=== PATIENT | female | born 1960 | race Caucasian/White ===

== ENCOUNTER 2020-05-18 19:29 | Inpatient (IN) | payer BC, SELFPAY ==
[~2020-05-18] VITALS: Ht 165.1 cm; Wt 64.0 kg
[2020-05-18 19:49] VITALS: BP_SYST 125
--- NOTE | 2020-05-18 19:55 | NUR ---
Patient to ER bed 06 to gown for evaluation. Side rails up. Report given to JOE Mauro
--- NOTE | 2020-05-18 20:11 | NUR ---
DR ANGULO IN TO ASSESS
[2020-05-18] MEDS ORDERED: MORPHINE 4 MG/ML INJ. SYRINGE IVP ONE (20:15)
[2020-05-18] MEDS ORDERED: NACL 0.9% 1,000 ML IV ONE (20:15)
--- NOTE | 2020-05-18 20:15 | NUR ---
HERE FOR C/O FEVERS, RECEIVING TX FOR CA AND WAS TOLD TO GO TO ER FOR FEVERS UPON ARRIVAL AMBULATORY, RESP UNLABORED, SKIN WARM AND DRY. NO DISTRESS
[2020-05-18] MEDS ORDERED: MORPHINE 4 MG/ML INJ. SYRINGE ONE (20:47)
[2020-05-18] MEDS: ONDANSETRON HCL 4 MG/2 ML VIAL IVP ONE ×2 (20:54→21:01)
[2020-05-18 21:09] LABS: BASOPHILS % (AUTO) 0.2 % (0.0-2.0); EOSINOPHILS # (AUTO) 0.1 K/uL (0.0-0.4); EOSINOPHILS % (AUTO) 0.7 % (0.0-4.0); HEMATOCRIT 27.8 % (36-48); HEMOGLOBIN 9.1 g/dL (12.0-16.0); LYMPHOCYTES # (AUTO) 0.6 K/uL (1.0-5.5); LYMPHOCYTES % (AUTO) 5.3 % (20.5-51.5); MEAN CORPUSCULAR HEMOGLOBIN 29 pg (27-31); MEAN CORPUSCULAR HGB CONC 33 % (32-36); MEAN CORPUSCULAR VOLUME 89 fL (79.0-98.0); MONOCYTES # (AUTO) 0.6 K/uL (0.0-1.0); MONOCYTES % (AUTO) 5.3 % (1.7-9.3); NEUTROPHILS # (AUTO) 10.6 K/uL (1.8-7.7); NEUTROPHILS % (AUTO) 88.5 % (40.0-70.0); PLATELET COUNT (AUTO) 338 K/uL (130-430); RED BLOOD CELL COUNT(AUTO) 3.12 MIL/uL (4.2-6.2); RED CELL DISTRIBUTION WIDTH 17.8 % (9.0-15.0)
[2020-05-18 21:21] LABS: INFLUENZA A&B ANTIGEN SCREEN NEGATIVE FOR A & B (NEGATIVE)
[2020-05-18 21:26] LABS: CALCIUM 9.4 mg/dL (8.4-11.0); CREATININE 0.91 mg/dL (0.55-1.30)
[2020-05-18 21:31] LABS: ALBUMIN 2.6 g/dL (3.4-4.8); TOTAL BILIRUBIN 0.6 mg/dL (0.0-1.0)
[2020-05-18 21:44] LABS: BILIRUBIN,URINE NEGATIVE (NEGATIVE); BLOOD, URINE 1+ (NEGATIVE); CLARITY/URINE CLEAR (CLEAR); COLOR,URINE YELLOW (YELLOW); GLUCOSE,URINE NEGATIVE (NEGATIVE); KETONES,URINE NEGATIVE (NEGATIVE); LEUKOCYTE ESTERASE ,URINE 1+ (NEGATIVE); NITRITE, URINE NEGATIVE (NEGATIVE); PROTEIN URINE NEGATIVE (NEGATIVE); UROBILINOGEN,URINE 0.2 (0.2-1.0)
--- NOTE | 2020-05-18 21:45 | NUR ---
URINE OBTAINED, TOLERATED BED LEZAMA. NO DISTRESS
[2020-05-18 22:00] LABS: BACTERIA,URINE RARE /HPF (None Seen); RBC,URINE 0-3 /HPF (0-3); WBC,URINE NONE SEEN /HPF (0-3)
--- NOTE | 2020-05-18 22:02 | NUR ---
WOUND CARE TO LT GROIN
[2020-05-18] MEDS ORDERED: AZITHROMYCIN 500 MG in NS 250 ML IV ONE (22:30)
[2020-05-18] MEDS ORDERED: fentaNYL CITRATE/PF 100 MCG/2 ML AMP IVP ONE (22:30)
[2020-05-18] MEDS ORDERED: ACETAMINOPHEN 325 MG TABLET PO ONE (22:30)
--- NOTE | 2020-05-18 22:43 | NUR ---
ADMIT ORDERS FOR ADMIT TO M/S DX UTI UNDER MARICEL
[2020-05-18] MEDS: POTASSIUM CHLORIDE 10 MEQ in NACL 0.9% 1,000 ML IV SCH (22:45)
[2020-05-18] MEDS ORDERED: ALBUTEROL SULFATE 0.083% 2.5 MG/3 ML VIAL.NEB INH PRN (23:00)
[2020-05-18] MEDS ORDERED: METOCLOPRAMIDE HCL 10 MG/2 ML VIAL IVP PRN (23:00)
[2020-05-18] MEDS ORDERED: MORPHINE 2 MG/ML INJ. SYRINGE IVP PRN (23:00)
[2020-05-18] MEDS ORDERED: ACETAMINOPHEN 650 MG/20.3 ML UDC PO ONE (23:00)
[2020-05-18] MEDS ORDERED: NALOXONE HCL 0.4 MG/ML AMP (NARCAN) IVP PRN (23:00)
[2020-05-18] MEDS ORDERED: ZOLPIDEM TARTRATE 5 MG TABLET PO PRN (23:00)
--- NOTE | 2020-05-18 23:12 | NUR ---
Patient will be admitted to care of [facility]. Admitted to TELE unit. Will go to room 117. Belongings list completed. Complete and up to date summary report printed. SBAR report to be given at bedside with opportunity for questions.
[2020-05-18] MEDS ORDERED: GABA-529 PO (23:27)
[2020-05-18] MEDS ORDERED: OXYIR5 PO (23:27)
[2020-05-18] MEDS ORDERED: DOCU-144 PO (23:27)
[2020-05-18] MEDS ORDERED: MIRT15TA7 PO (23:27)
[2020-05-18] MEDS ORDERED: GUAI100S14 PO (23:27)
[2020-05-18] MEDS ORDERED: BENZ-16 PO (23:27)
[2020-05-18] MEDS ORDERED: APIX2.5T PO (23:27)
[2020-05-18] MEDS ORDERED: lidocaine patch TP (23:31)
--- NOTE | 2020-05-18 23:31 | NUR ---
ADMISSION NOTE Received patient from ER via gurney. Patient admitted with diagnosis of UTI. Patient is awake, alert, oriented X 4. Patient oriented to hospital room, call light, toileting, pain management and safety-teach back done. Patient informed that CECILIA will be nurse and that their room number is 116B. Personal belongings checked and Belongings List documented. Call light within reach.
[2020-05-18 23:35] VITALS: BP_SYST 99
[2020-05-19] VITALS: BP_SYST 99
--- NOTE | 2020-05-19 | NUR ---
RN ROUNDS PROVIDED PT WITH BSC AND WARM BLANKET. PT CONFIRMS PAIN LEVEL IS TOLERABLE AND WILL INFORM US IF SHE NEEDS PAIN MEDICATION. PT HAS DRY COUGH, WILL CONTACT MD TO CONTINUE HOME MEDICATION TESSALON FOR COUGH.
[2020-05-19 00:09] VITALS: BP_SYST 108
[2020-05-19] MEDS ORDERED: KCL 10 mEq in 50 mL (PREMIX) 50 ML IV ONE (00:47)
--- NOTE | 2020-05-19 03:30 | NUR ---
JOE APONTE/DR. CONNELLY SPOKE WITH MD VIA PHONE, INFORMED PT IS COMPLAINING OF COUGH PT TAKES HOME MEDICATION TESSALON 200MG, NEW ORDERS TO CONTINUE TESSALON AT THIS TIME. INFORMED PT RECEIVED LEVAQUIN IN ER.
[2020-05-19] MEDS ORDERED: BENZONATATE 100 MG CAPSULE (TESSALON) PO SCH ×2 (03:45→05:00)
[2020-05-19] MEDS: BENZONATATE 100 MG CAPSULE (TESSALON) PO SCH ×2 (04:32→14:30)
--- NOTE | 2020-05-19 06:15 | NUR ---
Paged Dr. Hunter s/w Morales
--- NOTE | 2020-05-19 06:20 | NUR ---
CLOSING NOTE PT COMPLAINING OF INTERMITTENT PAIN TO RIGHT SIDE, NO SOB, NO FEVER. PT REFUSED PRN MORPHINE AND WOULD LIKE TO TAKE OXYCODONE (HOME MEDICATION). INFORMED PT THAT MD HAS BEEN PAGED, AWAITING RETURN CALL. IVF INFUSING WELL. CALL LIGHT WITHIN REACH, BED IN LOW AND LOCKED POSITION. PT REFUSED BED ALARM AT THIS TIME. PT HAS STEADY GAIT. BSC WITHIN REACH. ALL NEEDS MET THROUGHOUT SHIFT. WILL CONTINUE TO MONITOR UNTIL PT CARE IS ENDORSE TO MORNING SHIFT RN.
[2020-05-19 07:00] VITALS: BP_SYST 122
[2020-05-19 07:12] LABS: BASOPHILS % (AUTO) 0.3 % (0.0-2.0); EOSINOPHILS # (AUTO) 0.1 K/uL (0.0-0.4); EOSINOPHILS % (AUTO) 1.1 % (0.0-4.0); HEMATOCRIT 23.7 % (36-48); HEMOGLOBIN 7.9 g/dL (12.0-16.0); LYMPHOCYTES # (AUTO) 0.7 K/uL (1.0-5.5); LYMPHOCYTES % (AUTO) 7.6 % (20.5-51.5); MEAN CORPUSCULAR HEMOGLOBIN 30 pg (27-31); MEAN CORPUSCULAR HGB CONC 34 % (32-36); MEAN CORPUSCULAR VOLUME 89 fL (79.0-98.0); MONOCYTES # (AUTO) 0.6 K/uL (0.0-1.0); MONOCYTES % (AUTO) 5.8 % (1.7-9.3); NEUTROPHILS # (AUTO) 8.1 K/uL (1.8-7.7); NEUTROPHILS % (AUTO) 85.2 % (40.0-70.0); PLATELET COUNT (AUTO) 280 K/uL (130-430); RED BLOOD CELL COUNT(AUTO) 2.65 MIL/uL (4.2-6.2); RED CELL DISTRIBUTION WIDTH 17.9 % (9.0-15.0); WHITE BLOOD COUNT (AUTO) 9.5 K/uL (4.8-10.8)
[2020-05-19 07:32] LABS: ALBUMIN 2.1 g/dL (3.4-4.8); CALCIUM 8.4 mg/dL (8.4-11.0); CREATININE 0.72 mg/dL (0.55-1.30); POTASSIUM 3.8 mmol/L (3.5-5.1); THYROID STIMULATING HORMONE 2.32 uIu/mL (0.36-3.74); TOTAL BILIRUBIN 0.4 mg/dL (0.0-1.0)
[2020-05-19 08:00] VITALS: BP_SYST 122
--- NOTE | 2020-05-19 08:30 | NUR ---
NURSE REPORT AND ASSESSMENT Report obtained from night nurse Nori at 0745 and this nurse assumed care of patient. Received patient awake and alert. Asked for Oxycodone and medication reconcilation done. Morphine 2 mg given IVP x 1. VSS. Afeb. Tele monitor SR. VALDES stated okay for patient to take all her med.
[2020-05-19] MEDS ORDERED: LIDOCAINE PATCH 5% 1 EA TP SCH (09:00)
[2020-05-19] MEDS ORDERED: APIXABAN 2.5 MG TABLET PO SCH (09:00)
[2020-05-19] MEDS ORDERED: FAMOTIDINE 20 MG TABLET PO SCH (09:00)
[2020-05-19] MEDS ORDERED: guaiFENesin 200 MG/10 ML UDC PO PRN (09:15)
[2020-05-19] MEDS ORDERED: guaiFENesin/DEXTROMETHORPHAN 10 ML UDC PO ONE (09:15)
[2020-05-19] MEDS ORDERED: DOCUSATE SODIUM 100 MG CAPSULE PO ONE (09:30)
[2020-05-19] MEDS: GABAPENTIN 100 MG CAPSULE PO SCH ×2 (09:35→16:48)
[2020-05-19] MEDS: oxyCODONE HCL 5 MG TABLET PO PRN ×2 (10:05→14:31)
[2020-05-19] MEDS: POTASSIUM CHLORIDE 10 MEQ in NACL 0.9% 1,000 ML IV SCH (11:31)
[2020-05-19] MEDS ORDERED: IPRATROPIUM/ALBUTEROL SULFATE 3 ML AMPUL.NEB (DUONEB) INH SCH (12:00)
[2020-05-19 12:28] VITALS: BP_SYST 100
--- NOTE | 2020-05-19 14:47 | NUR ---
Dietitian Recommendations * Recommend regular diet w/ Ensure Enlive BID (ONS provides 700 kcal/day, 40 gm protein/day) * Recommend PM snack daily (peanut butter bar) CHANDRAKANT, ANTONIO Please refer to Nutrition Assessment for details. Addendum: 05/19/20 at [address] Amended: Links added.
[2020-05-19 16:30] VITALS: BP_SYST 102
[2020-05-19] MEDS: LEVOFLOXACIN 500 MG/D5W 100 ML IV SCH ×2 (17:08→17:13)
--- NOTE | 2020-05-19 18:00 | NUR ---
PATIENT CARE Patient has been medicated for pain with Morphine x 1. Oxycodone x 2. Last at 1430. For cough, he had [place] x 1 and Robitussin liquid x 2. She c/o having pain at 1600, and wants to go AMA. Sister calling and asked of if she can go home today and she was just admitted last night. Patient requested to go AMA and she signed the form with charge nurse. Dr Hunter in to see patient before 1700. Patient was to leave and go to [facility]. About to give her Levaquin and she refused to be given the antibiotic. Son waiting for patient per patient. IV dc'd at 1715. But patient wasn't ready until 1800. Taken out via w/c with JOSE J
[2020-05-19] MEDS ORDERED: MIRTAZAPINE 15 MG TABLET PO SCH (21:00)
[2020-05-20] MEDS ORDERED: DOCUSATE SODIUM 100 MG CAPSULE PO SCH (09:00)
== END 2020-05-19 18:00 | disposition left against medical advice (07) | DRG 872 ==
LOC: SED 19:29 → STU 22:36
PROVIDERS: ADMIT Internal Medicine; ATTEND Internal Medicine
DX: A41.9 Sepsis, unspecified organism (principal); C68.0 Malignant neoplasm of urethra; D72.829 Elevated white blood cell count, unspecified; Z20.828 Contact with and (suspected) exposure to other viral communicable diseases; Z85.118 Personal history of other malignant neoplasm of bronchus and lung; Z90.49 Acquired absence of other specified parts of digestive tract; Z79.01 Long term (current) use of anticoagulants; Z79.899 Other long term (current) drug therapy; Z88.6 Allergy status to analgesic agent; Z88.1 Allergy status to other antibiotic agents; Z88.0 Allergy status to penicillin
CPT/HCPCS: 36415; 71045; 80053; 81000-TC; 83605; 83880; 84443-TC; 85025; 85379; 86710; 87040-TC; 87081; 87086; 94640; 96365; 96375; 99285; G0378; J1956; J2270; J2405; J3010; J3480; J7030; J7613